=== PATIENT | male | born 2005 | race Two or more races ===

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

== ENCOUNTER 2024-08-10 15:02 | Outpatient (AMB) | payer OTHER, SELFPAY ==
--- NOTE | 2024-08-10 15:13 | A.OFFPC_ITS ---
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 ?? Prior PCP:? Davy Buck. Last office visit/CPE:? 1 yr Acute issue(s):? + PHQ9 & GAD7 Hx of Anxiety & Depression - has had multiple therapists Never tried meds. ?? PMHx:?Asthma, Anxiety/Depression. Elevated cholesterol. SurgHx:? None FHx:? Mom: Substance abuse, Anxiety/Depression. SocHx:? 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 1. Little interest or pleasure in doing things: nearly every day 2. Feeling down, depressed, or hopeless: more than half the days 3. Trouble falling or staying asleep, or sleeping too much: nearly every day 4. Feeling tired or having little energy: more than half the days 5. Poor appetite or overeating: more than half the days 6. Feeling bad about yourself - or that you are a failure or have let yourself or your family down: not at all 7. Trouble concentrating on things, such as reading the newspaper or watching television: more than half the days 8. Moving or speaking so slowly that other people could have noticed. Or the opposite - being so fidgety or restless that you have been moving around a lot more than usual: nearly every day 9. Thoughts that you would be better off or of hurting yourself in some way: not at all Total score: 17 Depression Screening Interpretation: Positive Depression Screening Done: Yes 80575 - PHQ-9 Billing: Yes Source: Developed by Drs. Davis Lewis, Sherry Lubin, Kulwinder Dueñas and colleagues, with an educational enrique from [employer]. Thrive Questionnaire Date Thrive assessed: 08/10/24 I am a: Patient What is your living situation today?: I have a steady place to live Within the past 12 months, did the food you bought not last and you didn't have the money to get more?: Never true Within the past 12 months, did you worry whether your food would run out before you got money to buy more?: Never true Do you have trouble paying for medicines?: No Do you have trouble getting transportation to medical appointments?: No Do you have trouble paying your heating and electricity bill?: No Do you have trouble taking care of your child, family member or friend?: No Do you have trouble with day-to-day activities such as bathing, preparing meals, shopping, managing finances, etc.?: No Are you currently unemployed and looking for a job?: No Are you interested in more education?: No Please select the resources that you would like help with: None Currently or been in a relationship where the following occur: No concerns reported THRIVE Score: 0 AUDIT C Alcohol Use Questionnaire (AUDIT-C) 1. How often do you have a drink containing alcohol?: Never 3. How often do you have six or more drinks on one occasion?: Never Total Score: 0 Score Reviewed/Action Taken: Yes STANLEY-7 AMB Questionnaire STANLEY-7 Date STANLEY - 7 assessed: 08/10/24 Feeling nervous, anxious, or on edge: 1 = Several days Not being able to stop or control worryin = More than half the days Worrying too much about different things: 2 = More than half the days Trouble relaxin = More than half the days Being so restless that it is hard to sit still: 1 = Several days Becoming easily annoyed or irritable: 0 = Not at all Feeling afraid as if something awful might happen: 0 = Not at all Total STANLEY-7 score (0-4 normal; 5-9 mild; 10-14 moderate; 15-21 severe): 8 Source: Developed by Drs. Davis Lewis, Sherry Lubin, Kulwinder Dueñas and colleagues, with an educational enrique from [employer]. STANLEY-7 Assessment Billing STANLEY-7 Assessment Tool: STANLEY-7 Assessment 12821 Review of Systems Const Denies chills, Denies fatigue, Denies fever(s), Denies headache(s) and Denies weakness ENT Denies dizziness and Denies headache(s) Card Denies chest pain, Denies lightheadedness, Denies dyspnea and Denies other (Palpitations) Resp Denies cough, Denies dyspnea, Denies wheezing and Denies other ( shortness of breath) Musc Denies numbness and Denies tingling Neuro Denies dizziness, Denies headache(s), Denies numbness, Denies tingling, Denies paresthesias and Denies weakness Psych Reports anxiety and Reports depression Endo Denies fatigue Aller/Immun Denies wheezing Physical exam (Primary Care) Vital Signs: Last Vital Signs Temp 98.3 F 08/10/24 15:20 Pulse 64 08/10/24 15:20 Resp 16 08/10/24 15:20 BP 110/60 08/10/24 15:20 Pulse Ox 99 08/10/24 15:20 Oxygen Delivery Method Room Air 08/10/24 15:20 BMI result Body Mass Index 32.9 Tobacco/Smoking Status: Tobacco use Status Tobacco use date assessed 08/10/24 08/10/24 15:23 Patient Tobacco Use Status Never used Tobacco 08/10/24 15:23 e-Cigarette/Vaping Use Never Used 08/10/24 15:23 PHQ-9: PHQ-9 Score PHQ-9: Total score 17 08/10/24 15:41 Depression Screening Interpretation: Positive Thrive Assessment: Date of Thrive Assessment Date Thrive assessed 08/10/24 08/10/24 15:23 Currently or been in a relationship where the following occur: No concerns reported Const General: no acute distress and well developed Nutritional Appearance: well nourished Orientation/consciousness: patient oriented x3 HENMT Head: Yes normocephalic and Yes atraumatic Eyes General: appearance normal, both eyes and all related structures Pupils: Equal, round and reactive pupils present EOM: EOMs intact bilaterally Resp Effort & Inspection: normal respiratory effort Auscultation: clear to auscultation bilaterally Cardio Rate: regular rate Rhythm: regular rhythm Heart sounds: S1 normal heart sound present, S2 normal heart sound present, no gallops, no murmurs and no rubs Neuro General: patient oriented x3 and gait normal Cranial nerves: Yes Equal, round and reactive pupils present Psych Affect: normal affect Assessment and Plan Assessment & Plan (1) Depression with anxiety: Code(s): F41.8 - Other specified anxiety disorders Plan: Significant?and?longstanding?history?of?depression?and?anxiety No?decreased?need?for?sleep?in?fact?patient?notes?increased/over?sleeping Start fluoxetine Offered?therapy?but?patient?declines?this (2) Acne: Code(s): L70.9 - Acne, unspecified Plan: Trial?cleaned?gel (3) De Quervain's tenosynovitis: Code(s): M65.4 - Radial styloid tenosynovitis [de Quervain] Plan: Tendinitis?or?de?Quervain?tenosynovitis Patient?has?already?tried?a?brace?and?NSAIDs Referred?to?and?surgery (4) Pain of left thumb: Code(s): M79.645 - Pain in left finger(s) Plan: As?above (5) Elevated LDL cholesterol level: Code(s): E78.00 - Pure hypercholesterolemia, unspecified Plan: Check?lipid (6) Asthma: Code(s): J45.909 - Unspecified asthma, uncomplicated Plan: Likely?mild?intermediate?or?moderate?intermediate?asthma Will?add?ProAir?2?his?medication?list?and?also?Flovent (7) Laboratory exam ordered as part of routine general medical examination: Code(s): Z00.00 - Encounter for general adult medical examination without abnormal findings Plan: Check?labs Orders: Orders Microalbumin, Random (w Creat) Today I10 - Essential (primary) hypertension Comprehensive [place]. Panel Fast Today Z00.00 - Encounter for general adult medical examination without abnormal findings Lipid Panel Today Z00.00 - Encounter for general adult medical examination without abnormal findings TSH reflex Free T4 Today Z00.00 - Encounter for general adult medical examination without abnormal findings UA and rflx microscopic Today Z00.00 - Encounter for general adult medical examination without abnormal findings Referrals Hand Surgery Referral M65.4 - Radial styloid tenosynovitis [de Quervain], M79.645 - Pain in left finger(s) Medications: New clindamycin phosphate 1% (Clindagel) 1 appl topical DAILY 30 days 75 mL 1RF fluoxetine 10 mg PO DAILY 30 days 30 tabs 1RF Coding Level of Care Code New Pt Level 3 (68131) Diagnoses Depression with anxiety F41.8 Acne L70.9 De Quervain's tenosynovitis M65.4 Pain of left thumb M79.645 Elevated LDL cholesterol level E78.00 Asthma J45.909 Laboratory exam ordered as part of routine general medical examination Z00.00 Additional Codes STANLEY-7 Assessment Billing - STANLEY-7 Assessment Tool: STANLEY-7 Assessment 84304 ([id number])
[2024-08-10 15:20] VITALS: BP 110/60; PULSE 64; RESP 16; TEMP 36.8; O2SAT 99; BMI 32.9
== END 2024-08-10 16:03 | disposition home or self-care (01) ==
PROVIDERS: PCP Pediatrics; Visit Provider Family Medicine
DX: F41.8 Other specified anxiety disorders (principal); L70.9 Acne, unspecified; M65.4 Radial styloid tenosynovitis [de Quervain]; M79.645 Pain in left finger(s); E78.00 Pure hypercholesterolemia, unspecified; J45.909 Unspecified asthma, uncomplicated; Z00.00 Encounter for general adult medical examination without abnormal findings

== ENCOUNTER → 2024-08-10 15:02 | Outpatient (BNVA) | payer OTHER, SELFPAY | PROVIDERS: PCP Pediatrics; Visit Provider Family Medicine | DX: Z00.01 Encounter for general adult medical examination with abnormal findings (principal); F41.8 Other specified anxiety disorders; M65.4 Radial styloid tenosynovitis [de Quervain]; L70.9 Acne, unspecified; E78.00 Pure hypercholesterolemia, unspecified; J45.909 Unspecified asthma, uncomplicated | CPT/HCPCS: 96127; 99202 ==

== ENCOUNTER 2024-08-13 06:04 | Outpatient (REF) | payer OTHER, SELFPAY ==
[2024-08-13 08:31] LABS: Alanine Aminotransferase 41 U/L (0-40); Albumin Level 4.4 g/dL (3.5-5.0); Alkaline Phosphatase 93 U/L (39-117); Anion Gap 12 (12-20); Aspartate Amino Transferase 26 U/L (5-37); Bilirubin Total 0.8 mg/dL (0.0-1.0); Blood Urea Nitrogen 13 mg/dL (9-16); Calcium 9.9 mg/dL (8.4-10.2); Carbon Dioxide 28 mmol/L (22-29); Chloride 104 mmol/L (96-108); Cholesterol 155 mg/dL (<200); Estimated Glomerular Filt Rate > 60; Glucose Fasting 92 mg/dL (60-99); HDL Cholesterol 32 mg/dL (>40); LDL Cholesterol Calculated 101 mg/dL (<100); Potassium 3.6 mmol/L (3.3-5.1); Sodium 140 mmol/L (135-145); Total Protein 7.7 g/dL (6.5-8.0); Triglycerides 110 mg/dL (<150)
[2024-08-13 08:54] LABS: TSH reflex Free T4 1.38 uIU/mL (0.32-4.0)
== END 2024-08-13 06:05 | disposition home or self-care (01) ==
LOC: HO.LAB 06:04
PROVIDERS: PCP Family Medicine; Visit Provider Family Medicine
DX: Z00.00 Encounter for general adult medical examination without abnormal findings (principal)
CPT/HCPCS: 36415; 80053; 80061; 84443

== ENCOUNTER 2024-09-01 15:04 | Outpatient (AMB) | payer OTHER, SELFPAY ==
[2024-09-01 15:21] VITALS: BMI 32.7
--- NOTE | 2024-09-01 15:21 | A.OFFVIS_ITS ---
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 His pain is located on the volar aspect of his left thumb but then it radiated into the CMC joint of the left thumb. The pain lasted a little over 2 weeks and was constant throughout the day, since then he has mildly improved and says pain comes and goes. Tylenol and ibuprofen offer mild relief. He borrowed a carpal tunnel brace, it helped from preventing his ain from worsening but he doesn't feel it was doing what it was supposed to. Denies loss or sensation and tingling. 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 The patient reports that approximately 1 month ago, he began to experience significant discomfort in his left thumb and wrist while at work, but the patient states this has gradually gotten better in his all but resolved at this point. Patient reports that he has been wearing a carpal tunnel brace given to somebody else, but this he did not feel help much. He states that he does not feel he requires any acute treatment at this time. Denies any numbness or tingling in the left hand. No other Acute complaints or concerns at this time. 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 Neuro: Normal sensation of the tips of all digits of the left hand at this time Vascular: Cap refill brisk Pain: No tenderness to palpation of the basal joint, MCP joint, or right styloid of the left wrist ROM: Patient is able to make a closed fist and extend all digits of the left hand fully without difficulty Negative Megan on the left Skin: No lacerations or abrasions. General: No ecchymosis, erythema, or evidence of infection. Psych: Appears grossly normal Affect normal Attitude cooperative Assessment & Plan Assessment & Plan (1) Pain of left thumb: Code(s): M79.645 - Pain in left finger(s) Category: Medical Plan 1. Left thumb and wrist pain, resolved At this time, no acute intervention is indicated in this patient, as his symptoms have all but resolved and he does not feel he warrants any treatment Patient will follow-up as needed with any acute concerns Coding Level of Care Code New Pt Level 3 (50045) Diagnoses Pain of left thumb M79.645
== END 2024-09-01 15:48 | disposition home or self-care (01) ==
PROVIDERS: PCP Family Medicine
DX: M79.645 Pain in left finger(s) (principal)
CPT/HCPCS: 99202

== ENCOUNTER → 2024-09-01 15:04 | Outpatient (BNVA) | payer OTHER, SELFPAY | PROVIDERS: PCP Family Medicine | DX: M25.532 Pain in left wrist (principal); M79.645 Pain in left finger(s); M65.312 Trigger thumb, left thumb | CPT/HCPCS: 99202 ==

== ENCOUNTER 2024-09-21 14:22 | Outpatient (AMB) | payer OTHER, SELFPAY ==
--- NOTE | 2024-09-21 14:27 | A.OFFPC_ITS ---
Vital Signs 09/21/24 14:29 Height 5 ft 8 in Weight 214 lb 8 oz BMI 32.6 BP 120/57 L Blood Pressure Location Lt brachial Position Sitting Respiration 16 Pulse 67 Pulse Source Pulse Oximeter Temp 97.9 F Temp Source Temporal Artery Scan Pulse Oximetry (%) 98 Oxygen Delivery Method Room Air Intake Visit Reasons: f/u anxiety/depression, labs Intake Note: f/u for anxiety and depression Allergies No Known Allergies Allergy (Verified 09/21/24 14:28) Tobacco use date assessed: 08/10/24 Dental Screening Dental Screen Date: 08/10/24 HPI f/u anxiety/depression, labs HPI Details 18 y/o male presents to f/u anxiety/depr ession. He is on fluoxetine 10mg daily. Notes this has improved depression but worsened anxiety. Labs drawn 08/13/24. Reviewed labs with pt. Elevated ALT of 41. Triglycerides 110. TC 155. LDL 101. HDL low at 32. Trialed clindagel for acne. He notes he thinks it helped. He continues to use it. HPI Comments History of Present Illness Details Documentation assistance for Markel Martinez MD, was provided by Thony Aguirre, Pattern Designer on 09/21/2024 at 2:45 PM EST. I, Dr. Martinez, have read, observed, and verified documentation. 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 1. Little interest or pleasure in doing things: more than half the days 2. Feeling down, depressed, or hopeless: several days 3. Trouble falling or staying asleep, or sleeping too much: several days 4. Feeling tired or having little energy: more than half the days 5. Poor appetite or overeating: more than half the days 6. Feeling bad about yourself - or that you are a failure or have let yourself or your family down: more than half the days 7. Trouble concentrating on things, such as reading the newspaper or watching television: not at all 8. Moving or speaking so slowly that other people could have noticed. Or the opposite - being so fidgety or restless that you have been moving around a lot more than usual: not at all 9. Thoughts that you would be better off or of hurting yourself in some way: not at all Total score: 10 Source: Developed by Drs. Davis Lewis, Sherry Lubin, Kulwinder Dueñas and colleagues, with an educational enrique from [employer]. Thrive Questionnaire Date Thrive assessed: 08/10/24 I am a: Patient What is your living situation today?: I have a steady place to live Within the past 12 months, did the food you bought not last and you didn't have the money to get more?: Never true Within the past 12 months, did you worry whether your food would run out before you got money to buy more?: Never true Do you have trouble paying for medicines?: No Do you have trouble getting transportation to medical appointments?: No Do you have trouble paying your heating and electricity bill?: No Do you have trouble taking care of your child, family member or friend?: No Do you have trouble with day-to-day activities such as bathing, preparing meals, shopping, managing finances, etc.?: No Are you currently unemployed and looking for a job?: No Are you interested in more education?: Yes Please select the resources that you would like help with: None Currently or been in a relationship where the following occur: No concerns reported THRIVE Score: 0 AUDIT C Alcohol Use Questionnaire (AUDIT-C) 1. How often do you have a drink containing alcohol?: Never Total Score: 0 STANLEY-7 AMB Questionnaire STANLEY-7 Date STANLEY - 7 assessed: 08/10/24 Feeling nervous, anxious, or on edge: 2 = More than half the days Not being able to stop or control worryin = More than half the days Worrying too much about different things: 2 = More than half the days Trouble relaxin = More than half the days Being so restless that it is hard to sit still: 1 = Several days Becoming easily annoyed or irritable: 0 = Not at all Feeling afraid as if something awful might happen: 1 = Several days Total STANLEY-7 score (0-4 normal; 5-9 mild; 10-14 moderate; 15-21 severe): 10 Source: Developed by Drs. Davis Lewis, Sherry Lubin, Kulwinder Dueñas and colleagues, with an educational enrique from [employer]. Review of Systems Psych Reports anxiety and Reports depression Physical exam (Primary Care) Vital Signs: Last Vital Signs Temp 97.9 F 09/21/24 14:29 Pulse 67 09/21/24 14:29 Resp 16 09/21/24 14:29 BP 120/57 L 09/21/24 14:29 Pulse Ox 98 09/21/24 14:29 Oxygen Delivery Method Room Air 09/21/24 14:29 BMI result Body Mass Index 32.6 Tobacco/Smoking Status: Tobacco use Status Tobacco use date assessed 08/10/24 09/21/24 14:31 Patient Tobacco Use Status Never used Tobacco 09/21/24 14:31 e-Cigarette/Vaping Use Never Used 09/21/24 14:31 PHQ-9: PHQ-9 Score PHQ-9: Total score 10 09/21/24 14:45 Thrive Assessment: Date of Thrive Assessment Date Thrive assessed 08/10/24 09/21/24 14:31 Currently or been in a relationship where the following occur: No concerns reported Coding Level of Care Code Est Pt Level 4 (71003) Diagnoses Depression with anxiety F41.8 Elevated ALT measurement R74.01 Low HDL (under 40) E78.6 Elevated LDL cholesterol level E78.00 Acne L70.9 Assessment & Plan Assessment & Plan (1) Depression with anxiety: Code(s): F41.8 - Other specified anxiety disorders Category: Medical Plan: Was?at?fluoxetine?improved?his?depression?but?worsened?anxiety Will?switch?fluoxetine?to?citalopram Follow-up?in?a?month (2) Elevated ALT measurement: Code(s): R74.01 - Elevation of levels of liver transaminase levels Category: Medical Plan: Mildly?elevated?ALT Encouraged?weight?loss?and?good?hydration He?will?get?his?labs?drawn?prior?to?his?physical?in?May?and?we?can?review?this (3) Low HDL (under 40): Code(s): E78.6 - Lipoprotein deficiency Category: Medical Plan: Low?HDL.??Encouraged?more?exercise (4) Elevated LDL cholesterol level: Code(s): E78.00 - Pure hypercholesterolemia, unspecified Category: Medical Plan: Mildly?elevated?LDL?cholesterol Encouraged?weight?loss,?diet?low?in?saturated?fats?and?cholesterol?and?exercise Will?recheck?lipids?prior?to?his?physical?in?May (5) Acne: Code(s): L70.9 - Acne, unspecified Category: Medical Plan: Improved?with?cleaned?gel?but?seems?to?have?begun?to?have?diminishing?returns Switch?to?differin Orders: Orders 2 Lipid Panel Today E78.6 - Lipoprotein deficiency, Z00.00 - Encounter for general adult medical examination without abnormal findings Comprehensive [place]. Panel Fast Today R74.01 - Elevation of levels of liver transaminase levels, Z00.00 - Encounter for general adult medical examination without abnormal findings Medications: New adapalene 0.1% (Differin) 1 appl topical BEDTIME 45 grams 2RF 30 days albuterol sulfate 90 mcg/actuation 2 puffs inhalation Q4-6H PRN 8.5 grams 0RF shortness of breath or wheezing 30 days citalopram 20 mg PO DAILY 30 tabs 2RF 30 days Discontinued fluoxetine Discontinued Reason: Doctor's Order 10 mg PO DAILY 30 days 30 tabs 1RF
[2024-09-21 14:29] VITALS: BP 120/57; PULSE 67; RESP 16; TEMP 36.6; O2SAT 98; BMI 32.6
== END 2024-09-21 14:57 | disposition home or self-care (01) ==
LOC: HO.HMCFM 14:24
PROVIDERS: PCP Pediatrics; Visit Provider Family Medicine
DX: F41.8 Other specified anxiety disorders (principal); R74.01 Elevation of levels of liver transaminase levels; E78.6 Lipoprotein deficiency; E78.00 Pure hypercholesterolemia, unspecified; L70.9 Acne, unspecified

== ENCOUNTER → 2024-09-21 14:22 | Outpatient (BNVA) | payer OTHER, SELFPAY | PROVIDERS: PCP Pediatrics; Visit Provider Family Medicine | DX: F41.8 Other specified anxiety disorders (principal); R74.01 Elevation of levels of liver transaminase levels; E87.6 Hypokalemia; E78.00 Pure hypercholesterolemia, unspecified; L70.9 Acne, unspecified | CPT/HCPCS: 96127; 99212 ==

== ENCOUNTER 2024-11-19 15:59 | Outpatient (AMB) | payer OTHER, SELFPAY ==
--- NOTE | 2024-11-19 16:04 | A.OFFPC_ITS ---
Vital Signs 11/19/24 16:08 Height 5 ft 8 in Weight 223 lb BMI 33.9 BP 120/66 Blood Pressure Location Rt brachial Position Sitting Respiration 16 Pulse 68 Pulse Source Pulse Oximeter Intake Visit Reasons: f/u depression/anxiety Intake Note: f/u anxiety and depression Allergies No Known Allergies Allergy (Verified 11/19/24 16:05) Medication List - Last Reconciled 11/19/24 by Markel Martinez MD adapalene 0.1% (Differin) 1 appl topical BEDTIME 30 days albuterol sulfate 90 mcg/actuation 2 puffs inhalation Q4-6H PRN 30 days citalopram 20 mg PO DAILY 30 days Tobacco use date assessed: 08/10/24 Dental Screening Dental Screen Date: 08/10/24 HPI f/u depression/anxiety HPI Details 18 y/o male presents to f/u anxiety/depr ession and acne. Trialing citalopram. He notes this seems to work well for him. Labs drawn 08/13/24. Reviewed labs with pt. Triglycerides 110. TC 155. LDL 101. HDL low at 32. 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 1. Little interest or pleasure in doing things: more than half the days 2. Feeling down, depressed, or hopeless: several days 3. Trouble falling or staying asleep, or sleeping too much: not at all 4. Feeling tired or having little energy: several days 5. Poor appetite or overeating: not at all 6. Feeling bad about yourself - or that you are a failure or have let yourself or your family down: not at all 7. Trouble concentrating on things, such as reading the newspaper or watching television: several days 8. Moving or speaking so slowly that other people could have noticed. Or the opposite - being so fidgety or restless that you have been moving around a lot more than usual: not at all 9. Thoughts that you would be better off or of hurting yourself in some way: not at all Total score: 5 Depression Screening Interpretation: Positive Depression Screening Done: Yes 38549 - PHQ-9 Billing: Yes Source: Developed by Drs. Davis Lewis, Kulwinder Garrison and colleagues, with an educational enrique from [employer]. Thrive Questionnaire Date Thrive assessed: 09/21/24 I am a: Patient What is your living situation today?: I have a steady place to live Within the past 12 months, did the food you bought not last and you didn't have the money to get more?: Never true Within the past 12 months, did you worry whether your food would run out before you got money to buy more?: Never true Do you have trouble paying for medicines?: No Do you have trouble getting transportation to medical appointments?: No Do you have trouble paying your heating and electricity bill?: No Do you have trouble taking care of your child, family member or friend?: No Do you have trouble with day-to-day activities such as bathing, preparing meals, shopping, managing finances, etc.?: No Are you currently unemployed and looking for a job?: No Are you interested in more education?: Yes Please select the resources that you would like help with: None Currently or been in a relationship where the following occur: No concerns reported THRIVE Score: 0 STANLEY-7 AMB Questionnaire STANLEY-7 Date STANLEY - 7 assessed: 11/19/24 Feeling nervous, anxious, or on edge: 0 = Not at all Not being able to stop or control worryin = Not at all Worrying too much about different things: 0 = Not at all Trouble relaxin = Several days Being so restless that it is hard to sit still: 0 = Not at all Becoming easily annoyed or irritable: 0 = Not at all Feeling afraid as if something awful might happen: 0 = Not at all Total STANLEY-7 score (0-4 normal; 5-9 mild; 10-14 moderate; 15-21 severe): 1 Source: Developed by Drs. Davis Lewis, Kulwinder Garrison and colleagues, with an educational enrique from [employer]. STANLEY-7 Assessment Billing STANLEY-7 Assessment Tool: STANLEY-7 Assessment 58445 Review of Systems Const Denies chills, Denies fatigue, Denies fever(s), Denies headache(s) and Denies weakness ENT Denies dizziness and Denies headache(s) Card Denies dyspnea Resp Denies cough, Denies dyspnea, Denies wheezing and Denies other (shortness of breath) Musc Denies numbness and Denies tingling Neuro Denies dizziness, Denies headache(s), Denies numbness, Denies tingling and Denies weakness Psych Denies anxiety and Denies depression Endo Denies fatigue Aller/Immun Denies wheezing Physical exam (Primary Care) Vital Signs: Last Vital Signs Pulse 68 11/19/24 16:08 Resp 16 11/19/24 16:08 BP 120/66 11/19/24 16:08 BMI result Body Mass Index 33.9 Tobacco/Smoking Status: Tobacco use Status Tobacco use date assessed 08/10/24 11/19/24 16:11 Patient Tobacco Use Status Never used Tobacco 11/19/24 16:11 e-Cigarette/Vaping Use Never Used 11/19/24 16:11 PHQ-9: PHQ-9 Score PHQ-9: Total score 5 11/19/24 16:11 Depression Screening Interpretation: Positive Thrive Assessment: Date of Thrive Assessment Date Thrive assessed 09/21/24 11/19/24 16:11 Currently or been in a relationship where the following occur: No concerns reported Const General: well developed; No acute distress Nutritional Appearance: well nourished Orientation/consciousness: patient oriented x3 [facility]: Yes normocephalic and Yes atraumatic Eyes General: appearance normal, both eyes and all related structures Pupils: Equal, round and reactive pupils present EOM: EOMs intact bilaterally Resp Effort & Inspection: normal respiratory effort Neuro General: patient oriented x3 and gait normal Cranial nerves: Yes Equal, round and reactive pupils present Psych Affect: normal affect Coding Level of Care Code Est Pt Level 4 (38252) Diagnoses Depression with anxiety F41.8 Acne L70.9 Elevated LDL cholesterol level E78.00 Low HDL (under 40) E78.6 Elevated ALT measurement R74.01 Additional Codes STANLEY-7 Assessment Billing - STANLEY-7 Assessment Tool: STANLEY-7 Assessment 58599 ([id number]) PHQ-9 - 19261 - PHQ-9 Billing: Yes ([id number]) Assessment & Plan Assessment & Plan (1) Depression with anxiety: Code(s): F41.8 - Other specified anxiety disorders Category: Medical Plan: Improved?and?stable?on?citalopram?20?mg?daily Continue?current?medication (2) Acne: Code(s): L70.9 - Acne, unspecified Category: Medical Plan: Patient?was?unable?to?get?Differin?because?it?was?not?covered?by?insurance He?says?is?not?bothering?him?no?further?treatment?was?discussed. (3) Elevated LDL cholesterol level: Code(s): E78.00 - Pure hypercholesterolemia, unspecified Category: Medical Plan: LDL?cholesterol?is?slightly?elevated Encouraged?diet?lower?in?saturated?fats?and?cholesterol (4) Low HDL (under 40): Code(s): E78.6 - Lipoprotein deficiency Category: Medical Plan: HDL?cholesterol?is?too?low Encouraged?exercise (5) Elevated ALT measurement: Code(s): R74.01 - Elevation of levels of liver transaminase levels Category: Medical Plan: Patient?would?like?to?donate?plasma?and?form?requests?fibrosis?panel?due?to?elev ated?ALT Ordered?along?with?repeat?liver?enzymes We?can?follow-up?in?a?couple?of?weeks?to?review?lab?work Orders: Orders Liver Fibrosis Pnl Today R74.01 - Elevation of levels of liver transaminase levels Comprehensive Met. Panel Today R74.01 - Elevation of levels of liver transaminase levels Lipid Panel Today E78.6 - Lipoprotein deficiency, Z00.00 - Encounter for general adult medical examination without abnormal findings
[2024-11-19 16:08] VITALS: BP 120/66; PULSE 68; RESP 16; BMI 33.9
== END 2024-11-19 16:43 | disposition home or self-care (01) ==
PROVIDERS: PCP Family Medicine; Visit Provider Family Medicine
DX: F41.8 Other specified anxiety disorders (principal); L70.9 Acne, unspecified; E78.00 Pure hypercholesterolemia, unspecified; E78.6 Lipoprotein deficiency; R74.01 Elevation of levels of liver transaminase levels

== ENCOUNTER → 2024-11-19 15:59 | Outpatient (BNVA) | payer OTHER, SELFPAY | PROVIDERS: PCP Pediatrics; Visit Provider Family Medicine | DX: F41.8 Other specified anxiety disorders (principal); L70.9 Acne, unspecified; E78.00 Pure hypercholesterolemia, unspecified; E78.6 Lipoprotein deficiency; R74.01 Elevation of levels of liver transaminase levels | CPT/HCPCS: 96127; 99212 ==

== ENCOUNTER 2024-12-01 06:37 | Outpatient (REF) | payer OTHER, SELFPAY ==
[2024-12-01 07:57] LABS: Alanine Aminotransferase 61 U/L (0-40); Albumin Level 4.3 g/dL (3.5-5.0); Anion Gap 9 (12-20); Aspartate Amino Transferase 33 U/L (5-37); Bilirubin Total 0.5 mg/dL (0.0-1.0); Blood Urea Nitrogen 13 mg/dL (9-16); Calcium 9.6 mg/dL (8.4-10.2); Carbon Dioxide 29 mmol/L (22-29); Chloride 108 mmol/L (96-108); Cholesterol 171 mg/dL (<200); Estimated Glomerular Filt Rate > 60; Glucose Fasting 79 mg/dL (60-99); HDL Cholesterol 35 mg/dL (>40); LDL Cholesterol Calculated 115 mg/dL (<100); Potassium 3.9 mmol/L (3.3-5.1); Sodium 142 mmol/L (135-145); Total Protein 7.5 g/dL (6.5-8.0); Triglycerides 107 mg/dL (<150)
[2024-12-01 08:10] LABS: Alkaline Phosphatase 88 U/L (39-117)
[2024-12-08 15:37] LABS: FIB-ALT 41 U/L (9-46); FIB-Alpha-2-Macroglobulin 163 mg/dL (106-279); FIB-Apolipoprotein A1 127 mg/dL (94-176); FIB-GGT 35 U/L (3-70); FIB-Haptoglobin 176 mg/dL (43-212); FIB-Total Bilirubin 0.5 mg/dL (0.2-1.2); Liver Fibrosis Score 0.09; Liver Fibrosis Stage F0; Nec Inflam Act Grade A0-A1; Nec Inflam Act Score 0.17
== END 2024-12-01 06:38 | disposition home or self-care (01) ==
LOC: HO.LAB 06:37
PROVIDERS: PCP Family Medicine; Visit Provider Family Medicine
DX: Z00.00 Encounter for general adult medical examination without abnormal findings (principal); R74.01 Elevation of levels of liver transaminase levels; E78.6 Lipoprotein deficiency
CPT/HCPCS: 36415; 80053; 80061; 81596

== ENCOUNTER 2024-12-01 16:25 | Outpatient (REF) | payer OTHER, SELFPAY ==
[2024-12-01 17:30] LABS: Appearance Urine Clear; Color Urine Yellow; Glucose Urine UA Negative (Negative); Leukocyte Esterase Urine Negative (Negative); Nitrite Urine Negative (Negative); Specific Gravity - Urine >= 1.030 (1.005-1.025); UMIC TRIGGER UA YES; Urine Blood Small (1+) (Negative); Urine Ketones Trace mg/dL (Negative); Urine Protein Negative (Neg-Trace)
[2024-12-01 18:09] LABS: Creatinine Urine 226.04 mg/dL; Microalbum/Creatinine Ratio Ur 5.3 ug/mg cr (<30)
[2024-12-01 18:21] LABS: Bacteria Urine None Seen (None Seen); Hyaline Casts Urine 0-2 /LPF (0-2); Squamous Epithelial Cell Urine 0-2 /HPF (0-2); WBC Urine 0-5 /HPF (0-5)
== END 2024-12-01 16:26 | disposition home or self-care (01) ==
LOC: HO.LAB 16:25
PROVIDERS: PCP Family Medicine; Visit Provider Family Medicine
DX: I10 Essential (primary) hypertension (principal)
CPT/HCPCS: 81001; 82043; 82570

== ENCOUNTER 2024-12-03 12:54 | Outpatient (AMB) | payer OTHER, SELFPAY ==
--- NOTE | 2024-12-03 13:15 | A.OFFPC_ITS ---
Intake Visit Reasons: f/u labs Allergies No Known Allergies Allergy (Verified 12/03/24 13:20) Medication List - Last Reconciled 12/03/24 by OTIS Christine- adapalene 0.1% (Differin) 1 appl topical BEDTIME 30 days albuterol sulfate 90 mcg/actuation 2 puffs inhalation Q4-6H PRN 30 days citalopram 20 mg PO DAILY 30 days Tobacco use date assessed: 12/03/24 Dental Screening Dental Screen Date: 12/03/24 Did you have a dental visit in the last 12 months?: Yes Did you have a dental problem in the last 6 months where you did not have access to dental care?: No Was dental information given to patient?: Patient has dentist HPI HPI Comments History of Present Illness Details History of Present Illness The patient is a 19-year-old male presenting with a follow-up visit to discuss recent laboratory results. The patient's liver enzyme levels were being monitored, with particular attention to specific liver lab tests, though these results were not yet available. Currently, the patient's Alanine Aminotransferase (ALT) level is reported as elevated, which is a nonspecific finding pending further liver test results. The patient's cholesterol has shown improvement, with the high-density lipoprotein (HDL) level increasing to 35, although it remains below the desired 40. The low-density lipoprotein (LDL) level has increased from 101 to 115, slightly exceeding the target of below 100. Previous interventions include dietary changes, with the patient reporting recent removal of red meat and an increase in greens. Further dietary management recommendations were discussed to address cholesterol management, specifically reducing processed food intake. The patient denies any symptoms that would suggest acute liver injury or other significant related pathology. Review of Systems - Nutrition: Reports recent dietary call ges, such as removing red meat and increasing greens intake. - Gastrointestinal: Denies any symptoms suggesting acute liver injury. Results Labs from 12/01/2024 show normal electrolytes, normal renal function, fasting glucose of 79, normal calcium, improving liver enzymes AST 33, ALT 61, compared to 08/13/2024 his AST was 26 in his ALT was 41, his alk phos is normal, his liver fibrosis panel is pending at this time, normal total protein and albumin, his total cholesterol has increased from 101-115, his HDL has improved from 32-35, his total cholesterol has increased from 155-171, in his triglycerides have decreased from 110-107 Discussion Notes I reviewed the patient's laboratory results, noting the elevated ALT and changes in cholesterol levels. We discussed that the liver fibrosis labs are pending and may take up to two weeks. The importance of lifestyle modifications was emp hasized, including diet and exercise, to manage cholesterol effectively. The patient inquired about dietary guidance; however, he has made recent positive changes by eliminating red meat and consuming more greens. We discussed limiting processed foods to aid in managing cholesterol and liver enzyme levels. The patient reports no issues with fast food, as he has eliminated it from his diet. Follow-up with Dr. Pandey is scheduled for March, but our office will reach out once the fibrosis panel results are available. Plan - Continue monitoring liver enzyme level s, specifically awaiting complete liver fibrosis panel results. - Continue monitoring cholesterol levels , with a focus on improving HDL and reducing LDL. - Encourage dietary modifications aimed at reducing cholesterol and improving liver function, emphasizing the reduction of processed foods. Patient was informed and verbally consented to the use of an ambient scribe or clinic note documentation during this visit. Patient Instructions - Continue dietary modifications to jose ge cholesterol, focusing on increasing intake of healthy greens and minimizing red meat. - Reduce processed food intake as much a s possible. - Await a call from our office vernon pandey the liver fibrosis panel results. - Maintain scheduled follow-up with Dr. Lanier in March. - Contact the office with any questions or concerns about your health or new symptoms that arise. 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 Davis Lewis, Sherry Lubin, Kulwinder Dueñas and colleagues, with an educational enrique from [employer]. Physical exam (Primary Care) Tobacco/Smoking Status: Tobacco use Status Tobacco use date assessed 12/03/24 12/03/24 13:23 Patient Tobacco Use Status Never used Tobacco 12/03/24 13:17 e-Cigarette/Vaping Use Never Used 12/03/24 13:17 Thrive Assessment: Date of Thrive Assessment Date Thrive assessed 09/21/24 12/03/24 13:17 Telehealth Telehealth Telehealth Platform: [employer] Location of provider rendering services: practice address Location of patient: other Patient Identification confirmed using: Name, : Yes Telehealth method: voice only Patient verbally consented to treatment: Yes Patient verbally consented to billing insurance company: Yes Patient informed of any privacy concerns related to visit: Yes Minutes spent on Phone/Video with Pt.: 7 Coding Level of Care Code Tele Est Pt Level 2 (53065) Complex EM visit Add On G2211 Diagnoses Low HDL (under 40) E78.6 Elevated ALT measurement R74.01 Elevated LDL cholesterol level E78.00 Assessment & Plan Assessment & Plan (1) Low HDL (under 40): Code(s): E78.6 - Lipoprotein deficiency Category: Medical (2) Elevated ALT measurement: Code(s): R74.01 - Elevation of levels of liver transaminase levels Category: Medical (3) Elevated LDL cholesterol level: Code(s): E78.00 - Pure hypercholesterolemia, unspecified Category: Medical Plan . Patient Instructions: To reduce low-density lipoprotein (LDL) cholesterol, you can try making lifestyle changes to your diet, exercise, and other habits: Eat a heart-healthy diet Limit saturated and trans fats, and eat more foods with healthy fats, like nuts, seeds, and unsaturated oils. You can also try eating more soluble fiber, which can help reduce the amount of cholesterol your body absorbs. Foods high in soluble fiber include whole grains, fruits, and legumes. Exercise regularly Aim for at least 150 minutes of exercise per week, such as walking, swimming, or cycling. Maintain a healthy weight Losing weight can help lower LDL cholesterol, especially if you are overweight or obese. Manage stress Chronic stress can raise LDL cholesterol, so try to find healthy ways to manage it. Quit smoking Smoking can raise cholesterol and increase the risk of serious health problems. Get enough sleep Aim for 7 to 9 hours of sleep per night. You should also limit foods with cholesterol, which are found in animal products like liver, egg yolks, and whole milk dairy products. What is metabolic dysfunction-associated steatotic liver disease? Metabolic dysfunction-associated steatotic liver disease, or MASLD, is a condition in which fat builds up in the liver. The liver is a big organ in the upper right side of the belly (figure 1). MASLD used to be called nonalcoholic fatty liver disease. When the liver has fat buildup and is inflamed, the condition is called metabolic dysfunction-associated steatohepatitis, or MASH. MASH used to be called nonalcoholic steatohepatitis. This article is mostly about MASH, because this condition can lead to the most problems. What causes MASLD and MASH? Doctors do not know exactly. They do know that it happens more often in some people, such as those who have: ?Excess body weight ?Diabetes, which causes blood sugar levels to get too high ?High cholesterol ?High blood pressure What are the symptoms of MASH? Most people with MASH (when there is liver inflammation) have no symptoms. Some people feel tired or unwell, or have discomfort in the upper belly. Your doctor or nurse might suspect that you have MASH based on the results of your routine blood tests. Will I need more tests? Yes. If your doctor or nurse suspects that you have MASH, you will likely have: ?More blood tests ?An imaging test of the liver ? This might be an ultrasound or MRI scan. Imaging tests create pictures of the inside of the body. Some people need a liver biopsy. During this test, a doctor removes a small sample of tissue from the liver. Then, another doctor looks at the sample under a microscope to check for MASH. A liver biopsy is the only test that can tell for sure if you have MASH. Your doctor might do this test if they are not sure if you have MASH or to see how inflamed your liver is. If your blood tests and imaging tests are normal, you will not need a liver biopsy. How is MASH treated? It is not typically treated directly. But it can improve when related medical conditions get treated. For example, losing weight and controlling high blood sugar and cholesterol can help improve MASH. Your doctor can: ?Help you lose weight, if you have excess body weight ? If your doctor recommends losing weight, they can help you make a plan to do this safely. It's important not to lose weight too quickly. Do not lose more than 2 pounds (approximately 1 kilogram) a week. ?Treat your high blood sugar, if you have diabetes ?Treat your high cholesterol, if you have it Making these changes has benefits besides helping with MASH. These changes can also lower your chances of having a heart attack or stroke. That's important because people with MASH are often also at risk for heart disease and stroke. Your doctor might recommend other things, too. For example: ?You might get vaccines to protect against hepatitis A and B. These are infections that can harm your liver. ?If you have MASH but do not also have diabetes, your doctor might suggest that you take vitamin E. A few studies suggest that vitamin E can reduce some of the liver damage and inflammation that happens with MASH. But there are also studies that suggest that high doses of vitamin E increase the risk of . So do not take vitamin E unless your doctor or nurse recommends it. What can I do on my own? You can: ?Take all of your medicines as instructed. ?Avoid alcohol. Alcohol can make liver problems worse. ?Eat a healthy diet with plenty of vegetables, fruits, and whole grains. ?Get regular physical activity. Even gentle activity, like walking, is good for your health. ?Go to all of your doctor's appointments. Does MASH get worse over time? It might. Sometimes, people with MASH get something called cirrhosis. This means serious scarring of the liver. Cirrhosis can cause different symptoms, such as swelling in the legs, trouble breathing, or feeling tired. People who have MASH need to see their doctor for regular check-ups. Your doctor will do follow-up tests regularly. These usually include blood tests. When should I call the doctor? Call your doctor or nurse if you have symptoms of cirrhosis. These can include: ?Blood in your bowel movements or vomit ?Symptoms of infection, such as fever over 100.4?F (38?C) or chills ?Belly pain ?Swollen legs or ankles ?Trouble breathing ?Extreme tiredness ?Confusion ?Yellowing of the skin or whites of your eyes, called jaundice
== END 2024-12-03 17:05 | disposition home or self-care (01) ==
LOC: HO.HMCFM 12:54
PROVIDERS: PCP Family Medicine; Visit Provider Nurse Practitioner Family
DX: E78.6 Lipoprotein deficiency (principal); R74.01 Elevation of levels of liver transaminase levels; E78.00 Pure hypercholesterolemia, unspecified

== ENCOUNTER 2025-02-04 08:55 | Emergency (ER) | payer OTHER, SELFPAY ==
[2025-02-04 09:07] VITALS: BP 133/67; PULSE 70; RESP 18; TEMP 36.8; O2SAT 98; BMI 35.5
[2025-02-04] MEDS: Diphth,Pertus(ACell),Tet Adult 0.5 ML SYRINGE IM (09:42)
[2025-02-04] MEDS: levoFLOXacin 750 MG TABLET PO (09:42)
--- NOTE | 2025-02-04 09:43 | ED.WOUNDLAC ---
HPI - Wound/Laceration General Chief Complaint: Wound/Laceration Stated Complaint: Stepped on nail @ work Time Seen by Provider: 02/04/25 09:29 Source: patient Mode of arrival: ambulatory Limitations: no limitations History of Present Illness ED Provider: Jose Valencia PA-C HPI narrative: 19 yo male presenting for evaluation of a puncture wound to his right foot. He states he was at work when he accidentally stepped on a nail and it went through his boot into his right foot. he states it did no go in deep and it did not bleed. he is not sure when he had his last tetanus shot. he reports minimal pain at this time. no other concerns. Onset (ago): hour(s) Extremity Location: right: foot Place: work Patient tetanus UTD: No Context: accidental Associated symptoms: pain Related Data Previous Rx's ?Medication ?Instructions ?Recorded adapalene 0.1 % topical cream 1 appl topical BEDTIME 30 days #45 09/21/24 (Differin) grams citalopram 20 mg tablet 20 mg PO DAILY 30 days #30 tabs 12/22/24 albuterol sulfate 90 mcg/actuation 2 puff inhalation Q4-6H PRN 01/24/25 aerosol inhaler shortness of breath or wheezing 30 days #8.5 grams levofloxacin 500 mg tablet 500 mg PO DAILY #3 tabs 02/04/25 Allergies Allergy/AdvReac Type Severity Reaction Status Date / Time No Known Allergies Allergy Verified 02/04/25 09:09 Review of Systems Review of Systems: Yes all other systems are reviewed and are negative [facility] Social History Social History Housing: House Alcohol intake: current Alcohol intake frequency: holidays/special occasions only Patient Tobacco Use Status: Never used Tobacco Smoked in Last 30 Days: No e-Cigarette/Vaping Use: Never Used Second Hand Smoke Exposure: No Use of substances other than those prescribed or required for medical reasons: No Advance Directives: No Advance Directives Information Provided: No Do you have a plan to hurt others: No Plan service: No Current occupational status: employed 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 Oriented X3. No acute distress. HEENT: normal inspection CVS: Normal heart rate and rhythm. Pulses normal. Respiratory: No respiratory distress. Skin: Skin warm and dry. Normal skin color. Normal skin turgor. No rashes. Extremities: plantar aspect of the right foot with a <0.5cm puncture wound on the ball of the foot without associated tenderness, erythema or drainage. Neuro: Oriented X 3. grossly normal, nonfocal Medications Administered Discontinued Medications Generic Name Dose Route Start Last Admin Trade Name Freq PRN Reason Stop Dose Admin Diphtheria/Tetanus/Acell Pertussis 0.5 ml 02/04/25 09:34 02/04/25 09:42 Diphth,Pertus(Acell),Tet Adult 0.5 Ml Syringe IM 02/04/25 09:35 0.5 ml .ONCE ONE Administration Levofloxacin 750 mg 02/04/25 09:34 02/04/25 09:42 Levofloxacin 750 Mg Tablet PO 02/04/25 09:35 750 mg ONCE ONE Administration Medical Decision Making Medical Decision Making MDM Narrative: 19 yo male presenting to the ER for evaluation of a puncture wound to his foot. occurred through his boot. superficial puncture. low suspicion for bony involvement. area was cleaned. given tdap and PO levaquin. given high risk for pseudomonas/staph infection will continue ppx abx return precautions discussed stable for d/c home Differential Diagnosis Differential Diagnoses: The differential diagnosis associated with the presentation includes open fracture, puncture wound, abrasion, laceration External Record Review External record reviewed: Prior outpatient labs Tests considered The following testing was considered but not selected: considered xray of the foot Prescription Management I considered prescription management with: Pain Medication and Antibiotic Critical Care Time Critical Care Time Critical Care Time: No Discharge Plan Discharge Clinical Impression: Puncture wound of plantar aspect of right foot Qualifiers: Encounter type: initial encounter Qualified Code(s): S91.331A - Puncture wound without foreign body, right foot, initial encounter Patient Disposition: Home, Self-Care Instructions: Puncture Wound in the Foot (ED) Additional Instructions: you were given a tetanus shot today you were given 1st dose of antibiotics to prevent infection take the next dose tomorrow and complete the course keep the wound clean and covered wash with soap and water when you take your shoes off take motrin and tylenol as needed for pain If you develop new or worsening symptoms call 911 or come back to the ER for further evaluation. Prescriptions: New levofloxacin 500 mg tablet 500 mg PO DAILY Qty: 3 0RF No Action citalopram 20 mg tablet 20 mg PO DAILY 30 Days Qty: 30 2RF albuterol sulfate 90 mcg/actuation HFA aerosol inhaler 2 puff inhalation Q4-6H PRN (Reason: shortness of breath or wheezing) 30 Days Qty: 8.5 0RF adapalene [Differin] 0.1 % cream 1 appl topical BEDTIME 30 Days Qty: 45 2RF Interventions: ED Discharge Assessment Last Done: 02/04/25 09:53 Discharge Date/Time: 02/04/25 09:54 Print Language: Faroese
[2025-02-04 09:53] VITALS: BP 133/67; PULSE 70; RESP 18; TEMP 36.8; O2SAT 98
--- OUTSIDE RECORDS SUMMARY | 2025-02-04 10:18 | XMS_ITS | Clinical Summary ---
Author Organization [facility] Address [address] [place] [address] Phone Care Team Providers Care Radio Announcer Name Role Phone Unavailable Primary Care Provider Unavailabl e Allergies No known active allergies Medications omeprazole 20 MG delayed-release capsuleIndicati ons:Nausea TAKE ONE CAPSULE BY MOUTH EVERY DAY( ONE HOUR BEFORE EATING) 30 capsule 3 2 Active cephalexin 500 MG capsule TAKE 1 CAPSULE BY MOUTH TWICE DAILY FOR 10 DAYS 2 Active clotrimazole 1 % cream APPLY TOPICALLY TO THE AFFECTED AREA DAILY FOR 6 WEEKS 2 Active Active Problems Problem Noted Date Diagnosed Date Microscopic hematuria 04/11/2022 Overview (05/13/2022): Seen by renal 03/2022: 1. Microscopic Hematuria - no reports of gross hematuria. 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 - yearly follow up with PCP or nephrology [place] for BP, renal function and urinalysis screening Personal history of COVID-19 01/28/2022 Overview (12/30/2022): 11/2021, 12/26/22 - Dx in ER Assessment & Plan (03/20/2022 12:37 PM EDT): 11/2021 Assessment & Plan (01/28/2022 2:13 PM EST): 11/2021. Mild illness. Has had 2 covid vaccines. Needs booster but declined it today. He says his grandmother does not believe in Covid and she has not been immunized at all. 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 He told his job that he was not going to get the booster and they apparently said that was okay. I have strongly encouraged that he get the booster and that his grandmother be immunized against Covid. He knows where he can get the Covid vaccine in the community if he changes his mind. Psychosocial stressors 09/09/2017 Overview (10/27/2018): Being [place] [facility] sudden of Mom in 2013 from OD Sister (with mitochondrial disease) of respir failure in 2016 Assessment & Plan (10/27/2018 8:59 AM EST): Pt wishing to see therapist Sometimes feels sad Mental health list given to family Acute seasonal allergic rhinitis due to pollen 1 Overview (09/09/2017): jeanitin started in Fall 2016 Assessment & Plan (01/28/2022 2:19 PM EST): No issues no meds Assessment & Plan (10/11/2020 10:32 AM EST): No issues No meds Assessment & Plan (09/09/2017 10:32 AM EDT): jeanitin ordered Resolved Problems Problem Noted Date Diagnosed Date Resolved Date Current moderate episode of major depressive disorder 12/07/2019 01/28/2022 Assessment & Plan (10/11/2020 10:32 AM EST): Was seeing Audra Frank ( provider at [facility]) but was last seen 12/2019 Depression screen + again today but he does not want to see a therapist & in fact says that things are getting better it's just the coronavirus pandemic that is making things difficult because he is stuck at home patient agrees to call [facility] if wishing to reconnect with therapist & +/- consider trial medication if needed Counseling and coordination of care 11/05/2019 12/21/2021 Peanut allergy 08/05/2016 11/01/2017 Assessment & Plan (09/09/2017 10:23 AM EDT): Saw snuff grinder and screener in past, per Nixon, & no longer allergic Intermittent asthma 06/05/2010 10/11/20 20 Overview (09/09/2017): Albuterol prn. Used flovent til 2013. Assessment & Plan (12/28/2018 8:24 AM EST): Not using advair - felt no need after recovered from pneumonia 10/2019 Assessment & Plan (10/27/2018 9:16 AM EST): Dx in ER with ? Left sides small pneumonia vs atelectesis. Given zithromax but no help per Pt I suspect this is all asthma Will start advair 230/21 ( lot# [id number] ) - 2 puffs bid Once that is done will start adavir 115/21 - 2 puffs BID Recheck in 2-3 weeks Will repeat CXR at end of Oct (1 month for original CXR) If no better with controller med will refer to Pulmonary ( ? Dr Hernandez - I think he saw him in past) for PFTs Assessment & Plan (09/09/2017 10:22 AM EDT): No issues in years. No meds Immunizations Immunization Administration Dates Next Due DTaP 5 12/26/2008, 5,05/31/2004,04/05,02/14/2004 H1N1 09/21/2009 HPV Vaccine 9 Valent 08/05/2016,07/25/2015 Hep A, ped/adol 08/05/2016,07/25/2015 Hep B, ped/adol 10/01/2004,05/31/2004,2003 Hib (HbOC) 03/06/2005, 4,04/05/2004,02/13 IPV 12/26/2008, 4,04/05/2004,02/13 Influenza Split 03/03/2013,11/28/2011,07/31/2010 Influenza, injectable, quadr ivalent, preservative free 01/28/2022,10/11/2020,08/03/2019,08/24,09/09/2017,08/05/2016,07/25/2015 Influenza, injectable, trivalent 12/26/2008,10/24,10/08/2005 MMR 12/26/2008,12/17/2004 Meningococcal Conj (Menactra) MCV4P 12/06/2019,0 07/25/2015 Pneumococcal Conjugate 03/06/2005,2003,04/05/2004,02/13 Tdap 07/25/2015 Varicella 12/26/2008,12/17/2004 Family History Medical History Relation Name Comments Arthritis Maternal Grandmother lina Fibromyalgia Maternal Grandmother lina Relation Name Status Comments Brother Tesfaye Alive Brother: Alive and well Father tesfaye collier Alive Father: Alive and well Maternal Grandmother lina Alive Mother Nalini Other Family history of Deafness, Family history of Migraines, Family history of Diabetes mellitus, Family history of Asthma Sister 1 lina vivas , Seizure diso rder. TBCK encephalopathy Sister 2 cristgiorgie Alive Sister 3 pito Alive Social History Tobacco Use Types Packs/Day Years Used Date Smoking Tobacco: Never Smokeless Tobacco: Never Alcohol Use Standard Drinks/Week Comments No 0 (1 standard drink = 0.6 oz pur e alcohol) Hunger/Food Answer Date Recorded In the last 12 months, did y ou or your family ever eat less than you felt you should because there wasn't enough money for food? No 01/28/2022 Stable Housing Answer Date Recorded Are you worried that in the next 2 months you may not have stable housing? No 01/28/2022 Transportation Concerns Answer Date Rec orded In the last 12 months, have you or your family ever had to go without healthcare because you didn't have a way to get there? No 01/28/2022 Hazards in Home Answer Date Recorded Think about the place you li ve. Do you have problems with any of the following? Pests (mice or roaches), mold, no/not working smoke detectors, water leaks, no window guards. No 2021 Financing Utilities Answer Date Recorde d In the last 12 months, has t he electric, gas, oil, or water company threatened to shut off your services in your home? No 01/28/2022 Safety at Home Answer Date Recorded Are you or your family worried about feeling saf e in your home? No 01/28/2022 Outside Support Answer Date Recorded Do you feel that you need mo re support from other people or programs to help you care for yourself or your family? No 01/28/2022 Understanding Health Concerns Answer Da te Recorded Do you need help understandi ng your or your child's healthcare needs (diagnosis, medications, plan, etc.)? No 01/28/2022 Financing Health Concerns Answer Date R ecorded In the last 12 months, was t here a time when your child needed to see a doctor or get medications or supplies but could not because of cost? No 01/28/2022 Missing School or Work Answer Date Luis rded Did you or your child miss s chool or work because of a health problem that could have been avoided? No 01/28/2022 Sex and Gender Information Value Date Recorded Sex Assigned at Not on file Legal Sex Male 5:11 PM EDT Gender Identity Male 10/09/2020 9:23 AM EST Sexual Orientation Not on file Last Filed Vital Signs Vital Sign Reading Time Taken Comments Blood Pressure 120/76 03/27/2023 2:11 PM EDT Pulse 79 03/27/2023 2:11 PM EDT Temperature 36.3 ??C (97.4 ??F) 03/27/2023 2:11 PM ED T Respiratory Rate - - Oxygen Saturation 98% 08/03/2019 10: 54 AM EDT Inhaled Oxygen Concentration - - Weight 99.2 kg (218 lb 12.8 oz) 03/27/2023 2:11 PM EDT Height 169.3 cm (5' 6.65 ) 01/28/2022 1:36 PM ES T Body Mass Index 34.63 01/28/2022 1:36 PM EST Plan of Treatment Health Maintenance Due Date Last Done Comments Men B Vaccine (1 of 2 - Standard) 2019 Influenza Vaccines (#1) 2024 01/29/20 22, 10/11/2020, 08/03/2019, Additional history exists COVID-19 Vaccine (3 - 2023-2 5 season) 2024 07/09/2021, 06/18/2021 DTaP,Tdap,and Td Vaccines (7 - Td or Tdap) 07/25/2025 07/25/2015, 12/26/2008, 06/03/2005, Additional history exists Hepatitis B Vaccines Completed 10/01/2004, 05/31/2004, 2003 HIB Vaccines Completed 03/06/2005, 06/2004, 04/05/2004, Additional history exists Pneumococcal Vaccine Completed 03/06/2005, 10/01/2004, 04/05/2004, Additional history exists IPV Vaccines Completed 12/26/2008, 06/2004, 04/05/2004, Additional history exists MMR Vaccines Completed 12/26/2008, 12/17/2004 Varicella Vaccines Completed 12/26/2008, 12/17/2004 HPV Vaccines Completed 08/05/2016, 07/25/2015 Hepatitis A Vaccines Completed 08/05/2016, 07/25/20 15 Meningococcal Vaccine Completed 12/06/2019, 015 [id number]
--- OUTSIDE RECORDS SUMMARY | 2025-02-04 10:19 | XMS_ITS | Encounter Summary ---
Author Organization [facility], Address [address] [place] [address] Phone Care Team Providers Care Social Media Strategist Name Role Phone Chata Lucia MD Primary Care Provider Encounter Details Date Type Department Care Team (Late st Contact Info) Description 02/22/2022 Documentation Only [facility], [address] [place] [address] Chata Lucia MD [address] [place] [address] Social History Tobacco Use Types Packs/Day Years Used Date Smoking Tobacco: Never Assessed Sex and Gender Information Value Date Recorded Sex Assigned at Not on file Legal Sex Male 12:05 PM EDT Gender Identity Not on file Sexual Orientation Not on file documented as of this encounter Plan of Treatment Not on file documented as of this encounter Visit Diagnoses Not on filedocumented in this encounter Care Teams Social Media Strategist Relationship Specialty Start Date End Date Chata Lucia MD [address] [place] [address] PCP - General Pediatrics 02/22/22 documented as of this encounter
--- OUTSIDE RECORDS SUMMARY | 2025-02-04 10:19 | XMS_ITS | Encounter Summary ---
Author Organization [facility] Address [address] [place] [address] Phone Care Team Providers Care Senior Asset Manager Name Role Phone Provider, Ayah REICH Primary Care Provider [phone] Encounter Details Date Type Department Care Team (Late st Contact Info) Description 04/30/2017 Documentation [facility] [place] [address] [place] [address] Family Medicine, Physician [address] [place] [address] Social History Tobacco Use Types Packs/Day Years Used Date Smoking Tobacco: Never Assessed Sex and Gender Information Value Date Recorded Sex Assigned at Not on file Legal Sex Male 5:11 PM EDT Gender Identity Male 10/09/2020 9:23 AM EST Sexual Orientation Not on file documented as of this encounter Plan of Treatment Not on file documented as of this encounter Visit Diagnoses Not on filedocumented in this encounter Care Teams Senior Asset Manager Relationship Specialty Start Date End Date Provider, MD Ayah [address] [place] [address] PCP - General Pediatrics 02/23/24 08/09/24 documented as of this encounter
--- OUTSIDE RECORDS SUMMARY | 2025-02-04 10:19 | XMS_ITS | Encounter Summary ---
Author Organization [facility] Address [address] [place] [address] Phone Care Team Providers Care Mild Disabilities Teacher Name Role Phone Provider, Ayah REICH Primary Care Provider [phone] Encounter Details Date Type Department Care Team (Late st Contact Info) Description 04/29/2017 [place]ation [facility] [address] [place] [address] Family Medicine, Physician [address] [place] [address] Social History Tobacco Use Types [...] on filedocumented in this encounter Care Teams Mild Disabilities Teacher Relationship Specialty Start Date End Date Provider, MD Ayah [address] [place] [address] PCP - General Pediatrics 02/23/24 08/09/24 documented as of this encounter
--- OUTSIDE RECORDS SUMMARY | 2025-02-04 10:19 | XMS_ITS | Encounter Summary ---
Author Organization [facility] Address [address] [place] [address] Phone Care Team Providers Care Wildlife Conservation Officer Name Role Phone Provider, Ayah REICH Primary Care Provider [phone] Encounter Details Date Type Department Care Team (Late st Contact Info) Description 01/29/2010 Documentation [facility] [place] [address] [place] [address] Family Medicine, Physician [address] [place] [address] Social History Tobacco Use Types [...] on filedocumented in this encounter Care Teams Wildlife Conservation Officer Relationship Specialty Start Date End Date Provider, MD Ayah [address] [place] [address] PCP - General Pediatrics 02/23/24 08/09/24 documented as of this encounter
--- OUTSIDE RECORDS SUMMARY | 2025-02-04 10:19 | XMS_ITS | Clinical Summary ---
Author Organization [facility] Address [address] [place] [phone] Care Team Providers Care Agency Director Name Role Phone Chata Lucia MD Primary Care Provider Social History Tobacco Use Types Packs/Day Years Used Date Smoking Tobacco: Never Smokeless Tobacco: Never Alcohol Use Standard Drinks/Week Comments Never 0 (1 standard drink = 0.6 oz pur e alcohol) Sex and Gender Information Value Date Recorded Sex Assigned at Not on file Legal Sex Male 4:29 AM EST Gender Identity Not on file Sexual Orientation Not on file Obstetrics History Last Filed Vital Signs Vital Sign Reading Time Taken Comments Blood Pressure - - Pulse - - Temperature - - Respiratory Rate - - Oxygen Saturation - - Inhaled Oxygen Concentration - - Weight 99.8 kg (220 lb) 05/14/2023 2:01 PM EDT Height 172.7 cm (5' 8 ) 05/14/2023 2:01 PM EDT Body Mass Index 33.45 05/14/2023 2:01 PM EDT Plan of Treatment Health Maintenance Due Date Last Done Comments HPV Vaccines (1 - Male 3-dos e series) 2018 Meningococcal B Vacine (1 of 2 - Standard) 2019 Annual Well Child Visit (3-2 1 years old) 10/27/2022 Depression Screening 10/27/2022 HIV Screening 10/27/2022 Hepatitis C Screening 10/27/2022 Social Influencers of Health Screening 10/27/2022 DTaP,Tdap,and Td Vaccines (1 - Tdap) 2022 Hepatitis B Vaccines (1 of 3 - 19+ 3-dose series) 2022 COVID-19 Vaccine ( - 2023-2 5 season) 2024 Influenza Vaccine (#1) 2024 HIB Vaccines Aged Out No longer eligi ble based on patient's age to complete this topic Hepatitis A Vaccines Aged Out No long er eligible based on patient's age to complete this topic IPV Vaccines Aged Out No longer eligi ble based on patient's age to complete this topic MMR Vaccines Aged Out No longer eligi ble based on patient's age to complete this topic Meningococcal ACWY Vaccine Aged Out N o longer eligible based on patient's age to complete this topic Pneumococcal Vaccine: Pediat rics (0 to 5 Years) and At-Risk Patients (6 to 64 Years) Aged Out No longer eligible b ased on patient's age to complete this topic RSV Immunization Patients Un barby 20 months Aged Out No longer eligible b ased on patient's age to complete this topic Varicella Vaccines Aged Out No longer eligible based on patient's age to complete this topic Care Teams Agency Director Relationship Specialty Start Date End Date Chata Lucia MD [address] [place] [address] STIVEN Bhatti [id number] PCP - General 02/20/22
--- OUTSIDE RECORDS SUMMARY | 2025-02-04 10:19 | XMS_ITS | Clinical Summary ---
Author Organization [facility], Address [address] [place] [address] [place] [address] Phone Care Team Providers Care Senior Hris Analyst Name Role Phone Chata Lucia MD Primary Care Provider [phone] Allergies No known active allergies Medications omeprazole (PriLOSEC) [address] capsule 02/20/2022 Active Active Problems Problem Noted Date Diagnosed Date Microscopic hematuria 04/11/2022 Social History Tobacco Use Types Packs/Day Years Used Date Smoking Tobacco: Never Assessed Sex and Gender Information Value Date Recorded Sex Assigned at Not on file Legal Sex Male 12:05 PM EDT Gender Identity Not on file Sexual Orientation Not on file Last Filed Vital Signs Vital Sign Reading Time Taken Comments Blood Pressure 104/68 04/12/2022 9:30 PM EDT Pulse 72 04/12/2022 9:30 PM EDT Temperature - - Respiratory Rate - - Oxygen Saturation - - Inhaled Oxygen Concentration - - Weight - - Height - - Body Mass Index - - Plan of Treatment Health Maintenance Due Date Last Done Comments Influenza Vaccine (#1) 2024 2, 10/11/2020, 08/03/2019, Additional history exists Hepatitis B Vaccine Completed 10/01/2004, 05/31/2004, 2003 Pneumococcal Vaccine: Pediatrics (0 to 5 Years) and At-Risk Patients (6 to 64 Years) Aged Out 03/06/2005, 10/01/2004, 04/05/2004, Additional history exists No longer eligible based on patient's age to complete this topic Insurance [facility] Care Teams Senior Hris Analyst Relationship Specialty Start Date End Date Chata Lucia MD [address] [place] [address] STIVEN Bhatti [address] PCP - General Pediatrics 02/22/22
--- OUTSIDE RECORDS SUMMARY | 2025-02-04 10:19 | XMS_ITS | Encounter Summary ---
Author Organization [facility] Address [address] [place] [address] Phone Care Team Providers Care Hat Brim Curler Name Role Phone Provider, Ayah REICH Primary Care Provider [phone] Encounter Details Date Type Department Care Team (Late st Contact Info) Description 01/29/2010 Documentation [facility] [place] [address] [place] [address] Family Medicine, Physician [address] [place] [address] Social History Tobacco Use Types [...] on filedocumented in this encounter Care Teams Hat Brim Curler Relationship Specialty Start Date End Date Provider, MD Ayah [address] [place] [address] PCP - General Pediatrics 02/23/24 08/09/24 documented as of this encounter
--- OUTSIDE RECORDS SUMMARY | 2025-02-04 10:19 | XMS_ITS | Encounter Summary ---
Author Organization [facility] Address [address] [place] [address] Phone Care Team Providers Care Instrumentation Chemist Name Role Phone Provider, Ayah REICH Primary Care Provider [phone] Encounter Details Date Type Department Care Team (Late st Contact Info) Description 07/10/2017 Conversion Encounter [facility] - [address] [id number] Social History Tobacco Use Types Packs/Day Years [...] on filedocumented in this encounter Care Teams Instrumentation Chemist Relationship Specialty Start Date End Date Provider, MD Ayah [address] [place] [phone] PCP - General Pediatrics 02/23/24 08/09/24 documented as of this encounter
== END 2025-02-04 09:54 | disposition home or self-care (01) ==
PROVIDERS: Emergency Provider Emergency Medicine; PCP Family Medicine
DX: S91.331A Puncture wound without foreign body, right foot, initial encounter (principal); M79.671 Pain in right foot; W45.0XXA Nail entering through skin, initial encounter; Y93.9 Activity, unspecified; Y92.9 Unspecified place or not applicable; Y99.0 Civilian activity done for income or pay; Z23 Encounter for immunization
CPT/HCPCS: 90471; 90715; 99284